=== PATIENT | female | born 1970 | race Caucasian/White ===

== ENCOUNTER → 2023-09-17 10:03 | Outpatient (REF) | payer BC, SELFPAY | LOC: WDC 10:03 | PROVIDERS: ATTENDING PHYSICIAN Student in an Organized Health Care Education/Training Program | DX: N64.4 Mastodynia (principal) | CPT/HCPCS: 76642; 77062; 77066 ==

== ENCOUNTER 2023-10-18 07:31 | Emergency (ER) | payer BC, SELFPAY ==
[2023-10-18 07:36] VITALS: BP 171/92
--- NOTE | 2023-10-18 08:00 | ED.MUSCINJ ---
HPI-Injury
General
Chief Complaint: Musculo-Skeletal Complaint
Source: patient
Exam Limitations: none
Time Seen by Provider: 10/18/23 07:54
Travel History
Have you had any contact with someone who has COVID-19?: No
Do you have any symptoms of coronavirus? Fever > 100 degrees, chills, cough, shortness of breath, sore throat, loss of taste or smell, muscle aches, or headache?: No
History of Present Illness-Injury
Initial Injury comments:
53-year-old female presents complaining of right rib pain after a fall earlier this morning. She tripped avoiding her cat and hit her right chest wall on a doorknob. Since then she has had pain and bruising. No urinary symptoms. No blood in the
urine. She notes it hurts to breathe and move. She is not anticoagulated. No other complaints at this time
Phy Exam
Physical Exam
Physical Exam:
General: Well-appearing female no acute respiratory distress
HEENT: Normocephalic atraumatic
Heart: Regular rate and rhythm no murmur
Lungs: Clear no wheeze or rales
Abdomen is soft no ecchymosis over the abdomen nontender.
Musculoskeletal exam: The right lateral chest wall and anterior chest wall is tender inferiorly. There is contusion over the inferior aspect of the right breast. There is no step-off or deformity
Injury Course
Orders/Labs/Results
Orders:
Orders
10/18/23 08:00
Ketorolac [Toradol] 30 mg IM NOW STA
CR Ribs-right 3 Vw W/pa Chest* Urgent
Comment:
Reason For Exam: fall, right rib pain
MDM/Problems Addressed
Differential Diagnosis Includes:
Right chest wall pain after trip and fall. Consider contusion versus rib fracture versus pneumothorax. Right rib series pending. Toradol ordered.
*Critical Care Note
Total Time (30-74mins, 75-104mins- exclusive of procedures): Not Applicable
Update Note
Update Note:
I personally visualized x-rays of the right ribs which demonstrate no fracture or pneumothorax. Back chest wall contusion. Recommended [id number] anti-inflammatories or Tylenol for pain and will prescribe muscle relaxer if needed for spasm.
Stable for
ED Attending Note
-
Portions of this chart may have been created with voice recognition software.� Occasional wrong word or��sound alike� substitutions may have occurred due to the inherent limitations of voice recognition software.
Discharge Plan
Departure
Patient Disposition: Home (Routine Discharge)
Date of Disposition: 10/18/23
Time of Disposition: 10:21
Patient with high blood pressure during this ER visit?: No
Discharge Problem:
Chest wall contusion
Instructions: Muscle and Bone Pain (DC)
Prescriptions:
New
methocarbamol 500 mg tablet
500 mg PO TID PRN (Reason: spasm) Qty: 10 0RF
Referrals:
UNKNOWN - PT DOES,NOT KNOW [Family Provider] -
Activity Restrictions/Additional Instructions:
Rest. Continue with Tylenol or ibuprofen for pain. Use muscle relaxers as needed for spasm. Avoid heavy lifting or twisting. Return if worse otherwise follow-up with family doctor
Interventions
Interventions:
*Risk Screen - Suicide Last Done: 10/18/23 07:37
*General Assessment Last Done: 10/18/23 07:37
*Neglect/Abuse Screening Last Done: 10/18/23 07:37
*ED COVID-19 Vaccine History Last Done: 10/18/23 07:42
ED-Musculoskeletal Assessment Last Done: 10/18/23 07:42
Discharge Date and Time
Print Language: K[place]IL[place]
[2023-10-18] MEDS: TORADOL 30 MG IM (08:09)
[2023-10-18 09:20] VITALS: BP 128/78
[2023-10-18 10:28] VITALS: BP 131/81
== END 2023-10-18 10:35 | disposition home or self-care (01) ==
LOC: EMR 07:31
PROVIDERS: EMERGENCY PHYSICIAN Emergency Medicine
DX: S20.211A Contusion of right front wall of thorax, initial encounter (principal); W18.09XA Striking against other object with subsequent fall, initial encounter
CPT/HCPCS: 99283; 71101

== ENCOUNTER → 2023-12-18 17:19 | Outpatient (REF) | payer BC, SELFPAY ==
[2023-12-18 18:14] LABS: % Basophils 1.1 % (0-2); % Immature Granulocytes 0.3 % (0-0.5); % Monocytes 11.6 % (1.7-9.3); Absolute Eosinophils 0.3 10^3/uL (0-0.7); Absolute Lymphocytes 1.6 10^3/uL (1.2-3.4); Absolute Monocytes 0.4 10^3/uL (0.1-0.6); Absolute Neutrophils 1.2 10^3/uL (1.4-6.5); Hematocrit 32.5 % (37.0-47.0); Hemoglobin 9.4 g/dL (12.0-16.0); Mean Corp Hgb Conc. 28.9 g/dL (33.0-37.0); Mean Corpuscular Hgb 22.1 pg (27.0-31.0); Mean Corpuscular Volume 76.3 fL (81.0-99.0); Mean Platelet Volume 10.4 fL (7.4-10.4); Nucleated Red Blood Cells % 0 %; Platelet Count 249 10^3/uL (130-400); Red Blood Cell Count 4.26 10^6/uL (4.20-5.40); Red Cell Dist. Width 19.5 % (11.5-14.5); White Blood Cell Count 3.5 10^3/uL (4.8-10.8)
[2023-12-18 18:17] LABS: ALT (SGPT) 49 U/L (0-35); AST (SGOT) 63 U/L (14-36); Albumin 4.8 g/dl (3.5-5.0); Alkaline Phosphatase 93 U/L (38-126); Blood Urea Nitrogen 19 mg/dl (7-17); Carbon Dioxide 22 mmol/L (22-30); Chloride 108 mmol/L (98-107); Glucose 67 mg/dl (70-99); HDL Cholesterol 72 mg/dl; LDL Cholesterol, Calculated 110 mg/dl; Potassium 4.2 mmol/L (3.5-5.1); Sodium 142 mmol/L (135-145); Total Bilirubin 0.3 mg/dl (0.2-1.3); Total Cholesterol 241 mg/dl (50-199); Total Protein 7.7 g/dl (6.3-8.2); Triglyceride 298 mg/dl (10-149); Very Low Density Lipoprotein 59 mg/dl (0-30); eGFR > 60.00
[2023-12-18 18:45] LABS: TSH 1.59 uIU/ml (0.47-4.68)
[2023-12-18 18:59] LABS: Anisocytosis 1+; Hypochromasia 1+; Microcytosis 1+; Normal RBC Morphology No
[2023-12-19 09:00] LABS: Glycohemoglobin (HgbA1c) 5.3 % (4.0-5.6)
== END ==
LOC: CLAB 17:19
PROVIDERS: ATTENDING PHYSICIAN Student in an Organized Health Care Education/Training Program
DX: Z13.9 Encounter for screening, unspecified (principal)
CPT/HCPCS: 36415; 80053; 80061; 83036; 84443; 85025

== ENCOUNTER 2024-01-21 07:49 | Emergency (ER) | payer BC, SELFPAY ==
[2024-01-21 07:53] VITALS: BP 177/90
[2024-01-21 08:14] VITALS: BMI 28.3
--- NOTE | 2024-01-21 08:25 | ED.SKININJ ---
HPI-Injury
General
Chief Complaint: Ear Problem
Source: patient
Exam Limitations: none
Time Seen by Provider: 01/21/24 08:14
History of Present Illness-Injury
Initial Injury comments:
53-year-old female presents complaining of left ear pain. She states she blew her nose and developed pain and noticed blood coming out of her ear. This started today. No headache no congestion no cough. She is not anticoagulated. No other
complaints at this time
Phy Exam
Physical Exam
Physical Exam:
General: Uncomfortable appearing female no acute respiratory distress
HEENT: Normocephalic atraumatic right TM within normal limits. Left TM with a streak of blood and evidence of a small pinhole rupture.
Heart: Regular rate and rhythm no murmurs
Lungs: Clear no wheeze or rales
Extremities: No cyanosis
Course
Orders/Labs/Results
Orders:
Orders
01/21/24 08:21
Acetaminophen [Tylenol] 1,000 mg PO NOW STA
Cefdinir [Omnicef] 300 mg PO NOW STA
01/21/24 08:29
Ibuprofen [Motrin] 600 mg PO NOW STA
Vital Signs
Initial and Last Documented VS:
Initial Vital Signs
Temp Pulse Resp BP Pulse Ox
99.2 F 109 18 177/90 97
01/21/24 07:53 01/21/24 07:53 01/21/24 07:53 01/21/24 07:53 01/21/24 07:53
Last Documented Vital Signs
Temp Pulse Resp BP Pulse Ox
99.2 F 109 18 177/90 97
01/21/24 07:53 01/21/24 07:53 01/21/24 07:53 01/21/24 07:53 01/21/24 07:53
MDM/Problems Addressed
Differential Diagnosis Includes:
Left ear pain. Consider otitis media TM rupture versus external infection
Examination most consistent with tympanic membrane rupture potentially from barotrauma from coughing. Patient is having difficulty hearing because of this. Will place on Omnicef. Patient did list penicillin as an allergy but believes she can
tolerate the cephalosporins. Tylenol administered for pain
*Critical Care Note
Total Time (30-74mins, 75-104mins- exclusive of procedures): Not Applicable
ED Attending Note
-
Portions of this chart may have been created with voice recognition software.� Occasional wrong word or��sound alike� substitutions may have occurred due to the inherent limitations of voice recognition software.
Discharge Plan
Departure
Patient Disposition: Home (Routine Discharge)
Date of Disposition: 01/21/24
Time of Disposition: 09:45
Patient with high blood pressure during this ER visit?: No
Discharge Problem:
Rupture of tympanic membrane
Instructions: Serous Otitis Media
Prescriptions:
New
cefdinir 300 mg capsule
300 mg PO BID Qty: 14 0RF
No Action
methocarbamol 500 mg tablet
500 mg PO TID PRN (Reason: spasm) Qty: 10 0RF
Referrals:
Linda Wan MD, Resident [Family Provider] -
Activity Restrictions/Additional Instructions:
You may continue with ibuprofen and Tylenol for pain. Take antibiotics as directed. Return if worse otherwise follow-up with family doctor
Interventions
Interventions:
*Risk Screen - Suicide Last Done: 01/21/24 08:14
*General Assessment Last Done: 01/21/24 08:14
*Neglect/Abuse Screening Last Done: 01/21/24 08:14
ED- Fall Risk Assessment Last Done: 01/21/24 08:54
*ED COVID-19 Vaccine History Last Done: 01/21/24 08:14
Discharge Date and Time
Print Language: [place] R[place]
[2024-01-21] MEDS: OMNICEF 300 MG PO (08:27)
[2024-01-21] MEDS: MOTRIN 600 MG PO (08:31)
== END 2024-01-21 10:02 | disposition home or self-care (01) ==
LOC: EMR 07:49
PROVIDERS: EMERGENCY PHYSICIAN Emergency Medicine; FAMILY PHYSICIAN Student in an Organized Health Care Education/Training Program
DX: H72.92 Unspecified perforation of tympanic membrane, left ear (principal)
CPT/HCPCS: 99283

== ENCOUNTER → 2024-04-30 15:58 | Outpatient (REF) | payer BC, SELFPAY ==
[2024-04-30 16:26] LABS: % Basophils 0.8 % (0-2); % Eosinophils 3.4 % (0-6); % Immature Granulocytes 0.5 % (0-0.5); % Monocytes 6.9 % (1.7-9.3); % Neutrophils 67.4 % (42.2-75.2); Absolute Basophils 0.1 10^3/uL (0-0.2); Absolute Eosinophils 0.2 10^3/uL (0-0.7); Absolute Lymphocytes 1.4 10^3/uL (1.2-3.4); Absolute Monocytes 0.5 10^3/uL (0.1-0.6); Absolute Neutrophils 4.4 10^3/uL (1.4-6.5); Hematocrit 35.9 % (37.0-47.0); Hemoglobin 10.6 g/dL (12.0-16.0); Mean Corp Hgb Conc. 29.5 g/dL (33.0-37.0); Mean Corpuscular Hgb 23.1 pg (27.0-31.0); Mean Corpuscular Volume 78.2 fL (81.0-99.0); Mean Platelet Volume 10.1 fL (7.4-10.4); Nucleated Red Blood Cells % 0 %; Platelet Count 259 10^3/uL (130-400); Red Blood Cell Count 4.59 10^6/uL (4.20-5.40); Red Cell Dist. Width 20.9 % (11.5-14.5); White Blood Cell Count 6.5 10^3/uL (4.8-10.8)
[2024-04-30 16:30] LABS: ALT (SGPT) 122 U/L (0-35); AST (SGOT) 110 U/L (14-36); Albumin 4.8 g/dl (3.5-5.0); Alkaline Phosphatase 114 U/L (38-126); Direct Bilirubin 0.1 mg/dl (0.0-0.4); Iron 48 ug/dl (37-170); Total Bilirubin 0.3 mg/dl (0.2-1.3); Total Protein 7.9 g/dl (6.3-8.2)
[2024-04-30 16:40] LABS: Percent Saturation 11 % (20-50); Total Iron Binding Capacity 434 ug/dl (265-497)
[2024-04-30 17:06] LABS: Ferritin 8.3 ng/ml (11.1-264.0)
[2024-04-30 17:37] LABS: Folate > 20.0 ng/ml (2.76-20); Vitamin B12 567 pg/ml (239-931)
== END ==
LOC: CLAB 15:58
PROVIDERS: ATTENDING PHYSICIAN Student in an Organized Health Care Education/Training Program
DX: D64.9 Anemia, unspecified (principal); D70.8 Other neutropenia; K21.9 Gastro-esophageal reflux disease without esophagitis; R74.8 Abnormal levels of other serum enzymes
CPT/HCPCS: 36415; 80076; 82607; 82728; 82746; 83540; 83550; 85025

== ENCOUNTER 2024-05-28 16:31 | Emergency (ER) | payer BC, SELFPAY ==
[2024-05-28 16:40] VITALS: BP 141/68
--- NOTE | 2024-05-28 16:42 | ED.GENMED ---
ED Provider Triage
<Gustavo Ortega PA-C - Last Filed: 05/28/24 16:44>
-
Patient seen by provider in Triage?: Seen in Triage
54-year-old female presents in referral from family doctor for evaluation of right lower quadrant abdominal pain. Pain has been 2 to 3 days. There is associated nausea and vomiting. Prior abdominal surgical history includes hysterectomy. No
urinary symptoms. ODT Zofran's have not been helping
Patient is nauseous at triage but has stable vital signs. Start workup with labs CBC CMP urinalysis as well as CT of the abdomen with IV contrast
Patient evaluated by healthcare provider at triage but warrants further assessment
History of Present Illness
<Gustavo Ortega PA-C - Last Filed: 05/28/24 16:44>
General
Chief Complaint: Abdominal Pain
Time Seen by Provider: 05/28/24 16:40
<LUISA Gilman - Last Filed: 05/28/24 22:34>
General
Source: patient
Exam Limitations: none
History of Present Illness
History of Present Illness:
This is a 54 year old female that comes in with c/o abd pain. States that she went to her PCP today as she has right sided abd pain. State that she has had nausea and vomiting for the past 3 days. States that her PCP told her to come to the ER.
States that she had a fever of 100, a headache and urinary burning. Denies any chills, chest pain, SOB, diarrhea, dizziness.
Past History
<LUISA Gilman - Last Filed: 05/28/24 22:34>
Past History
ED Past Surgical History: (X1), Gynecological (Hysterectomy, ) and Other (Breast reduction, rhinoplasty)
Social History
Tobacco: Former smoker
Alcohol: Occasional
Personal:
Living: with family
Review of Systems
<LUISA Gilman - Last Filed: 05/28/24 22:34>
Review of Systems
All Other Systems: ROS reviewed and negative except as documented in HPI and ROS
Constitutional: Reports fever; Denies chills
EENT: Reports no symptoms
Respiratory: Reports no symptoms; Denies cough or trouble breathing
Cardiac: Reports no symptoms; Denies chest pain
ABD/GI: Reports abdominal pain, nausea and vomiting; Denies diarrhea
: Reports dysuria; Denies frequency or urgency
Musculoskeletal: Reports no symptoms
Skin: Reports no symptoms
Neurological: Reports headache; Denies dizzy
Psychiatric: Reports no symptoms
Phy Exam
<LUISA Gilman - Last Filed: 05/28/24 22:34>
General Physical Exam
General Presentation: mild distress
General age: appears stated age
General Skin: warm and dry
General Habitus: normal
General Mental: alert
General Hydration: appears well hydrated
ENT Exam
ENT Exam: TM's normal, pharynx normal and neck supple
Eye Exam
Eye Exam: EOMI
Cardiovascular Exam
Cardiovascular Exam: regular rate/rhythm, no edema, no murmur and normal peripheral pulses
Pulmonary Exam
Pulmonary Exam: lungs clear, no respiratory distress, no rales, chest non tender, no crackles, no rhonchi, no wheezing and no cough
Gastrointestinal Exam
Gastrointestinal Exam: normal bowel sounds, soft, no organomegaly, no pulsatile mass, non distended and tender (Right sided abd tenderness with palpation, Discomfort with movement)
Musculoskeletal Exam
Musculoskeletal Exam: full ROM and no edema
Skin Exam
Skin Exam: normal color, warm/dry, no rash and no petechia
Course
<Gustavo Ortega PA-C - Last Filed: 05/28/24 16:44>
Orders/Labs/Results
Orders:
Orders
05/28/24 16:41
CT Abd/pelvis W Iv Cont Urgent
Comment:
Reason For Exam: rlq pain
Ondansetron Orally Disint [Zofran Odt (Orally Disintegrating)] 4 mg PO NOW STA
05/28/24 16:45
Ondansetron Orally Disint [Zofran Odt (Orally Disintegrating)] 4 mg .ROUTE .STK-MED ONE
05/28/24 16:54
Complete Blood Count/With Diff Urgent
Comprehensive Metabolic Panel Urgent
Lipase Urgent
05/28/24 19:12
Urinalysis Reflex To Culture Urgent
Date Specimen was Collected: 05/28/24
Time Specimen was Collected: 18:37
Urine Microscopic Reflex Cult Urgent
05/28/24 19:17
0.9% Sodium Chloride 1000 ml [Nss] 1,000 ml IV BOLUS
Ketorolac [Toradol] 30 mg IV NOW STA
Ondansetron Injectable [Zofran] 4 mg IV NOW STA
05/28/24 19:19
US Abdomen Complete/Upper Urgent
Reason For Exam: Upper abdp ain
05/28/24 20:42
HYDROmorphone [Dilaudid] 1 mg IV NOW STA
05/28/24 20:47
Metoclopramide [Reglan] 10 mg .ROUTE .STK-MED ONE
05/28/24 20:51
Metoclopramide [Reglan] 10 mg IV NOW STA
Abnormal Lab Results
05/28/24 05/28/24
16:54 19:12
Hgb 10.0 L g/dL
(12.0-16.0)
Hct 33.1 L %
(37.0-47.0)
MCV 76.1 L fL
(81.0-99.0)
MCH 23.0 L pg
(27.0-31.0)
MCHC 30.2 L g/dL
(33.0-37.0)
RDW 18.9 H %
(11.5-14.5)
Absolute Lymphs (auto) 1.1 L 10^3/uL
(1.2-3.4)
Monocytes % 10.1 H %
(1.7-9.3)
AST 45 H U/L
(14-36)
ALT 48 H U/L
(0-35)
Ur Occult Blood Reflex 1+ A
(Negative)
05/28/24 16:54
05/28/24 16:54
Vital Signs
Initial and Last Documented VS:
Initial Vital Signs
Temp Pulse Resp BP Pulse Ox
98.3 F 102 20 141/68 100
05/28/24 16:40 05/28/24 16:40 05/28/24 16:40 05/28/24 16:40 05/28/24 16:40
Last Documented Vital Signs
Temp Pulse Resp BP Pulse Ox
98.3 F 102 20 141/68 100
05/28/24 16:40 05/28/24 16:40 05/28/24 16:40 05/28/24 16:40 05/28/24 16:40
<LUISA Gilman - Last Filed: 05/28/24 22:34>
Orders/Labs/Results
Orders:
Orders
05/28/24 16:41
CT Abd/pelvis W Iv Cont Urgent
Comment:
Reason For Exam: rlq pain
Ondansetron Orally Disint [Zofran Odt (Orally Disintegrating)] 4 mg PO NOW STA
05/28/24 16:45
Ondansetron Orally Disint [Zofran Odt (Orally Disintegrating)] 4 mg .ROUTE .STK-MED ONE
05/28/24 16:54
Complete Blood Count/With Diff Urgent
Comprehensive Metabolic Panel Urgent
Lipase Urgent
05/28/24 19:12
Urinalysis Reflex To Culture Urgent
Date Specimen was Collected: 05/28/24
Time Specimen was Collected: 18:37
Urine Microscopic Reflex Cult Urgent
05/28/24 19:17
0.9% Sodium Chloride 1000 ml [Nss] 1,000 ml IV BOLUS
Ketorolac [Toradol] 30 mg IV NOW STA
Ondansetron Injectable [Zofran] 4 mg IV NOW STA
05/28/24 19:19
US Abdomen Complete/Upper Urgent
Reason For Exam: Upper abdp ain
05/28/24 20:42
HYDROmorphone [Dilaudid] 1 mg IV NOW STA
05/28/24 20:47
Metoclopramide [Reglan] 10 mg .ROUTE .STK-MED ONE
05/28/24 20:51
Metoclopramide [Reglan] 10 mg IV NOW STA
Abnormal Lab Results
05/28/24 05/28/24
16:54 19:12
Hgb 10.0 L g/dL
(12.0-16.0)
Hct 33.1 L %
(37.0-47.0)
MCV 76.1 L fL
(81.0-99.0)
MCH 23.0 L pg
(27.0-31.0)
MCHC 30.2 L g/dL
(33.0-37.0)
RDW 18.9 H %
(11.5-14.5)
Absolute Lymphs (auto) 1.1 L 10^3/uL
(1.2-3.4)
Monocytes % 10.1 H %
(1.7-9.3)
AST 45 H U/L
(14-36)
ALT 48 H U/L
(0-35)
Ur Occult Blood Reflex 1+ A
(Negative)
05/28/24 16:54
05/28/24 16:54
H/H slightly low. Anemic, AST/ALT slightly elevated. Lipase normal at 57, Urine negative for infection.
Vital Signs
Initial and Last Documented VS:
Initial Vital Signs
Temp Pulse Resp BP Pulse Ox
98.3 F 102 20 141/68 100
05/28/24 16:40 05/28/24 16:40 05/28/24 16:40 05/28/24 16:40 05/28/24 16:40
Last Documented Vital Signs
Temp Pulse Resp BP Pulse Ox
98.3 F 102 20 141/68 100
05/28/24 16:40 05/28/24 16:40 05/28/24 16:40 05/28/24 16:40 05/28/24 16:40
<LUISA Gilman - Last Filed: 05/28/24 22:34>
MDM/Problems Addressed
Differential Diagnosis Includes:
appendicitis. Ovarian cyst. Gallbladder disease
MDM/Problems Addressed:
This is a 54 year old female that comes in with c/o right sided abd pain. States that she went to see the PCP today as she has had abd pain for the past 3 days with nausea and vomiting. Patient sent in for further evaluation.
Will check labs, CT scan and get limited Ultrasound. Will give IV fluids and pain medication with antiemetic.
back over to see patient. patient was sleeping. Explained that her blood work is normal and her urine is negative for infection. CT scan and Ultrasound are negative for any acute process. Will give patient a prescription for Reglan and her have
follow up with the family doctor. Patient to return with increased or changing pain, fever or any other concerns .
Chronic conditions affecting care:
NA
Acute Exacerbation and/or Progression of Chronic Illness:
NA
<LUISA Gilman - Last Filed: 05/28/24 22:34>
*Radiology
Radiology exam reviewed: radiology read reviewed (CT-There is no evidence of acute pathology. Evaluation for bowel pathology is limited by the lack of enteric contrast. If there is clinical suspicion for bowel pathology, this study could be
repeated with enteric contrast and 4 hour delay. ) and all reviewed NAD by ED Provider (Abd Ultrasound-Normal. )
*Pulse Oximetry
Patient hypoxic: no
*EKG
Interpreted by ED Provider?: NA
Rate: EKG- N/A
*Pen Rider Interpretation
Rate: Pen Rider- N/A
*Critical Care Note
Total Time (30-74mins, 75-104mins- exclusive of procedures): Not Applicable
ED Attending Note
<Gustavo Ortega PA-C - Last Filed: 05/28/24 16:44>
-
Portions of this chart may have been created with voice recognition software.� Occasional wrong word or��sound alike� substitutions may have occurred due to the inherent limitations of voice recognition software.
Discharge Plan
Departure
Patient Disposition: Home (Routine Discharge)
Date of Disposition: 05/28/24
Time of Disposition: 22:29
Patient with high blood pressure during this ER visit?: Yes
Condition: Good
Covid-19: Not Applicable
Discharge Problem:
Abdominal pain
Instructions: Abdominal Pain, BLOOD PRESSURE
Prescriptions:
New
metoclopramide HCl [Reglan] 10 mg tablet
10 mg PO Q6H PRN (Reason: nausea and vomiting) Qty: 16 0RF
No Action
methocarbamol 500 mg tablet
500 mg PO TID PRN (Reason: spasm) Qty: 10 0RF
cefdinir 300 mg capsule
300 mg PO BID Qty: 14 0RF
Referrals:
Linda Wan MD, Resident [Family Provider] - Follow up in 2-3 days
Activity Restrictions/Additional Instructions:
As discussed, your blood work shows that you are a little anemic. Your liver enzymes are slightly elevated. Your urine is negative for infection. Your CT and Ultrasound as negative for any acute process. Please increase your water intake to 8-8oz
glasses daily. You have had a prescription for Reglan sent to your pharmacy to help with any nausea/vomiting. Follow up with the family doctor for recheck. IF YOU HAVE INCREASED OR CHANGING PAIN, FEVER, OR YOU HAVE ANY OTHER CONCERNS PLEASE RETURN
TO THE EMERGENCY ROOM
Interventions
Interventions:
*Risk Screen - Suicide Last Done: 05/28/24 16:40
*General Assessment Last Done: 05/28/24 16:40
*Neglect/Abuse Screening Last Done: 05/28/24 16:40
NG-Rqxuqb-Goizkhxcpf Assessment Last Done: 05/28/24 19:30
Discharge Date and Time
Print Language: FAROESE
[2024-05-28] MEDS: ZOFRAN ODT (ORALLY DISINTEGRATING) 4 MG PO (16:45)
[2024-05-28 17:02] LABS: % Basophils 0.6 % (0-2); % Immature Granulocytes 0.4 % (0-0.5); % Monocytes 10.1 % (1.7-9.3); % Neutrophils 65.9 % (42.2-75.2); Absolute Eosinophils 0.1 10^3/uL (0-0.7); Absolute Lymphocytes 1.1 10^3/uL (1.2-3.4); Absolute Monocytes 0.5 10^3/uL (0.1-0.6); Absolute Neutrophils 3.4 10^3/uL (1.4-6.5); Hematocrit 33.1 % (37.0-47.0); Mean Corp Hgb Conc. 30.2 g/dL (33.0-37.0); Mean Corpuscular Volume 76.1 fL (81.0-99.0); Mean Platelet Volume 9.4 fL (7.4-10.4); Nucleated Red Blood Cells % 0 %; Platelet Count 359 10^3/uL (130-400); Red Blood Cell Count 4.35 10^6/uL (4.20-5.40); Red Cell Dist. Width 18.9 % (11.5-14.5); White Blood Cell Count 5.1 10^3/uL (4.8-10.8)
[2024-05-28 17:16] LABS: ALT (SGPT) 48 U/L (0-35); AST (SGOT) 45 U/L (14-36); Albumin 4.8 g/dl (3.5-5.0); Alkaline Phosphatase 98 U/L (38-126); Blood Urea Nitrogen 15 mg/dl (7-17); Calcium 9.5 mg/dl (8.4-10.2); Carbon Dioxide 24 mmol/L (22-30); Chloride 102 mmol/L (98-107); Glucose 96 mg/dl (70-99); Lipase 57 U/L (23-300); Potassium 4.3 mmol/L (3.5-5.1); Sodium 137 mmol/L (135-145); Total Bilirubin 0.4 mg/dl (0.2-1.3); Total Protein 7.8 g/dl (6.3-8.2); eGFR > 60.00
[2024-05-28 19:28] LABS: Urine Albumin Negative (Neg - Trace); Urine Bilirubin Negative (Negative); Urine Character Clear (Clear); Urine Color Straw; Urine Glucose Negative (Negative); Urine Ketone Negative (Negative); Urine Leukocyte Negative (Negative); Urine Nitrite Negative (Negative); Urine Occult Blood 1+ (Negative); Urine Urobilinogen Negative (Neg - 1+); Urine pH 6.5 (5.0-9.0)
[2024-05-28] MEDS: NSS 1000 IV (19:37)
[2024-05-28] MEDS: ZOFRAN 4 MG IV (19:38)
[2024-05-28] MEDS: TORADOL 30 MG IV (19:38)
[2024-05-28 19:45] LABS: Urine Red Blood Cell 0-2 /HPF (0-2); Urine Squamous Cell 0-2 /LPF (Few); Urine White Cell 0-2 /HPF (0-5)
[2024-05-28] MEDS: DILAUDID 1 MG IV (20:49)
[2024-05-28] MEDS: REGLAN 10 MG IV (20:51)
[2024-05-28 22:31] VITALS: BP 120/75
== END 2024-05-28 22:37 | disposition home or self-care (01) ==
LOC: EMR 16:31
PROVIDERS: Physician Assistant; EMERGENCY PHYSICIAN Emergency Medicine; FAMILY PHYSICIAN Student in an Organized Health Care Education/Training Program
DX: R10.9 Unspecified abdominal pain (principal); R03.0 Elevated blood-pressure reading, without diagnosis of hypertension; Z87.891 Personal history of nicotine dependence
CPT/HCPCS: 99285; 96374; 96375 ×3; 96361; 74177; 76700; 80053; 81003; 81015; 83690; 85025; Q9967

== ENCOUNTER 2024-06-11 18:30 | Emergency (ER) | payer BC, SELFPAY ==
[2024-06-11 18:34] VITALS: BP 142/97
[2024-06-11 18:51] LABS: % Basophils 0.8 % (0-2); % Eosinophils 4.5 % (0-6); % Immature Granulocytes 0.2 % (0-0.5); % Lymphocytes 30.3 % (20.5-51.1); % Monocytes 13.4 % (1.7-9.3); % Neutrophils 50.8 % (42.2-75.2); Absolute Eosinophils 0.2 10^3/uL (0-0.7); Absolute Lymphocytes 1.5 10^3/uL (1.2-3.4); Absolute Monocytes 0.7 10^3/uL (0.1-0.6); Absolute Neutrophils 2.5 10^3/uL (1.4-6.5); Hematocrit 30.1 % (37.0-47.0); Hemoglobin 9.2 g/dL (12.0-16.0); Mean Corp Hgb Conc. 30.6 g/dL (33.0-37.0); Mean Corpuscular Volume 75.3 fL (81.0-99.0); Mean Platelet Volume 9.3 fL (7.4-10.4); Nucleated Red Blood Cells % 0 %; Platelet Count 292 10^3/uL (130-400); Red Cell Dist. Width 17.7 % (11.5-14.5); White Blood Cell Count 4.9 10^3/uL (4.8-10.8)
[2024-06-11 19:03] LABS: Lactic Acid 2.6 mmol/L (0.7-2.0)
[2024-06-11 19:10] LABS: ALT (SGPT) 51 U/L (0-35); AST (SGOT) 52 U/L (14-36); Albumin 4.5 g/dl (3.5-5.0); Alkaline Phosphatase 107 U/L (38-126); Blood Urea Nitrogen 20 mg/dl (7-17); Calcium 8.3 mg/dl (8.4-10.2); Carbon Dioxide 20 mmol/L (22-30); Chloride 101 mmol/L (98-107); Glucose 91 mg/dl (70-99); Lipase 68 U/L (23-300); Potassium 3.6 mmol/L (3.5-5.1); Sodium 135 mmol/L (135-145); Total Bilirubin 0.3 mg/dl (0.2-1.3); Total Protein 7.3 g/dl (6.3-8.2); eGFR > 60.00
[2024-06-11 19:41] LABS: TSH Reflex To Free T4 1.84 uIU/ml (0.47-4.68)
--- NOTE | 2024-06-11 22:32 | ED.GENMED ---
History of Present Illness
<Arti Vicente MD, Resident - Last Filed: 06/13/24 07:19>
General
Chief Complaint: Abdominal Pain
Source: patient
Time Seen by Provider: 06/11/24 21:07
Nursing documentation reviewed up to this point in time: agreed with
History of Present Illness
History of Present Illness:
54yo F with PMH diverticulitis, GI bleed, hiatal hernia, GERD who presents from home to ED for worsening abdominal pain/nausea. She has had nausea/pain since the beginning of May-- was evaluated by PCP and ED 05/28 but unclear etiology of pain.
Over the past 2 weeks, it got slightly better but is now worsening today. Her abdominal pain is worst in RUQ and radiates to back. Describes pain as 8/10, stabbing, exacerbated by activity/stairs/jumping, partially relieved by rest/tylenol/excedrin,
not associated with food. She again saw PCP today, who was concerned for peritonitic signs and sent to ED. She also reports nausea, reflux, and 2 episodes of vomiting today. Denies fevers/chills, diarrhea, constipation, black/bloody stools.
Past History
<Arti Vicente MD, Resident - Last Filed: 06/13/24 07:19>
Past History
ED Past Medical History: GERD, Psychiatric (depression) and Other (hiatal hernia, h/o diverticulitis, h/o GI bleed)
ED Past Surgical History: (X1), Gynecological (Hysterectomy), Orthopedic (neck surgery) and Other (Breast reduction, rhinoplasty)
Patient has exhibited threatening behavior?: No
Social History
Tobacco: Former smoker
Alcohol: None
Drug: None
Personal: Other (in process of divorce)
Living: with family
Employment: Not employed
Review of Systems
<Arti Vicente MD, Resident - Last Filed: 06/13/24 07:19>
Review of Systems
Allergies reviewed?: Yes
Constitutional: Reports no symptoms; Denies fever, fatigue or chills
EENT: Reports no symptoms
Respiratory: Reports no symptoms; Denies cough, hemoptysis or trouble breathing
Cardiac: Reports no symptoms; Denies diaphoresis, palpitations or syncope
ABD/GI: Reports other (see HPI)
: Reports no symptoms; Denies dysuria or difficulty voiding
Musculoskeletal: Reports no symptoms
Skin: Reports no symptoms
Neurological: Reports other (mild lightheadnedness); Denies dizzy, headache, weakness or numbness
Endocrine: Reports no symptoms
Hematologic/Lymphatic: Reports no symptoms
Psychiatric: Reports no symptoms
Phy Exam
<Arti Vicente MD, Resident - Last Filed: 06/13/24 07:19>
General Physical Exam
General Presentation: other (appears uncomfortable)
General age: appears stated age
General Skin: warm and dry
General Habitus: normal and obese
General Mental: alert
General Hydration: appears well hydrated
Cardiovascular Exam
Cardiovascular Exam: regular rate/rhythm, no edema and no murmur
Heart Sounds: normal
Pulmonary Exam
Pulmonary Exam: lungs clear, no respiratory distress, no crackles, no rhonchi, no wheezing, no cough and other (nonlabored breathing)
Oxygen Status: room air
Gastrointestinal Exam
Gastrointestinal Exam: soft, non distended, cva tenderness (right) and other (tender to palpation RUQ/R periumbilical region with rebound, voluntary guarding; wilson sign negative; no rigidity, negative bed shaking test)
Neurological Exam
Neurological Exam: alert, oriented x3 and speech normal
Musculoskeletal Exam
Musculoskeletal Exam: no edema
Skin Exam
Skin Exam: normal color and warm/dry
Psychiatric Exam
Psychiatric Exam: normal mood/affect and anxious
Course
<Arti Vicente MD, Resident - Last Filed: 06/13/24 07:19>
Orders/Labs/Results
Orders:
Orders
06/11/24 18:43
Complete Blood Count/With Diff Urgent
Comprehensive Metabolic Panel Urgent
Lactic Acid Urgent
Lipase Urgent
TSH Reflex To Free T4 Urgent
06/11/24 22:19
Iohexol [Omnipaque] See Protocol PO NOW STA
06/11/24 22:33
Ondansetron Injectable [Zofran] 4 mg IV NOW STA
06/11/24 22:53
Famotidine [Pepcid] 20 mg PO NOW STA
Morphine Sulfate 4 mg IV NOW STA
06/11/24 22:56
0.9% Sodium Chloride 1000 ml [Nss] 1,000 ml IV BOLUS
06/12/24 00:21
Morphine Sulfate 4 mg IV NOW STA
Ondansetron Injectable [Zofran] 4 mg IV NOW STA
06/12/24 01:00
CT Abd/pel W Iv And Oral Contr Urgent
Reason For Exam: persistent lower abd pain, elevated lactic acid
06/12/24 01:29
Lactic Acid Urgent
06/12/24 02:47
Metoclopramide [Reglan] 10 mg IV NOW STA
Abnormal Lab Results
06/11/24
18:43
RBC 4.00 L 10^6/uL
(4.20-5.40)
Hgb 9.2 L g/dL
(12.0-16.0)
Hct 30.1 L %
(37.0-47.0)
MCV 75.3 L fL
(81.0-99.0)
MCH 23.0 L pg
(27.0-31.0)
MCHC 30.6 L g/dL
(33.0-37.0)
RDW 17.7 H %
(11.5-14.5)
Absolute Monos (auto) 0.7 H 10^3/uL
(0.1-0.6)
Monocytes % 13.4 H %
(1.7-9.3)
Carbon Dioxide 20 L mmol/L
(22-30)
BUN 20 H mg/dl
(7-17)
Lactic Acid 2.6 H mmol/L
(0.7-2.0)
Calcium 8.3 L mg/dl
(8.4-10.2)
AST 52 H U/L
(14-36)
ALT 51 H U/L
(0-35)
06/11/24 18:43
06/11/24 18:43
Vital Signs
Initial and Last Documented VS:
Initial Vital Signs
Temp Pulse Resp BP Pulse Ox
99.1 F 116 20 142/97 98
06/11/24 18:34 06/11/24 18:34 06/11/24 18:34 06/11/24 18:34 06/11/24 18:34
Last Documented Vital Signs
Temp Pulse Resp BP Pulse Ox
98.9 F 94 20 159/102 99
06/12/24 01:26 06/12/24 01:26 06/11/24 18:34 06/12/24 01:26 06/12/24 01:26
<Constantino Quintana, - Last Filed: 06/12/24 00:26>
Orders/Labs/Results
Orders:
Orders
06/11/24 18:43
Complete Blood Count/With Diff Urgent
Comprehensive Metabolic Panel Urgent
Lactic Acid Urgent
Lipase Urgent
TSH Reflex To Free T4 Urgent
06/11/24 22:19
Iohexol [Omnipaque] See Protocol PO NOW STA
06/11/24 22:33
Ondansetron Injectable [Zofran] 4 mg IV NOW STA
06/11/24 22:53
Famotidine [Pepcid] 20 mg PO NOW STA
Morphine Sulfate 4 mg IV NOW STA
06/11/24 22:56
0.9% Sodium Chloride 1000 ml [Nss] 1,000 ml IV BOLUS
06/12/24 00:21
Morphine Sulfate 4 mg IV NOW STA
Ondansetron Injectable [Zofran] 4 mg IV NOW STA
06/12/24 01:00
CT Abd/pel W Iv And Oral Contr Urgent
Reason For Exam: persistent lower abd pain, elevated lactic acid
06/12/24 01:29
Lactic Acid Urgent
06/12/24 02:47
Metoclopramide [Reglan] 10 mg IV NOW STA
Abnormal Lab Results
06/11/24
18:43
RBC 4.00 L 10^6/uL
(4.20-5.40)
Hgb 9.2 L g/dL
(12.0-16.0)
Hct 30.1 L %
(37.0-47.0)
MCV 75.3 L fL
(81.0-99.0)
MCH 23.0 L pg
(27.0-31.0)
MCHC 30.6 L g/dL
(33.0-37.0)
RDW 17.7 H %
(11.5-14.5)
Absolute Monos (auto) 0.7 H 10^3/uL
(0.1-0.6)
Monocytes % 13.4 H %
(1.7-9.3)
Carbon Dioxide 20 L mmol/L
(22-30)
BUN 20 H mg/dl
(7-17)
Lactic Acid 2.6 H mmol/L
(0.7-2.0)
Calcium 8.3 L mg/dl
(8.4-10.2)
AST 52 H U/L
(14-36)
ALT 51 H U/L
(0-35)
06/11/24 18:43
06/11/24 18:43
Vital Signs
Initial and Last Documented VS:
Initial Vital Signs
Temp Pulse Resp BP Pulse Ox
99.1 F 116 20 142/97 98
06/11/24 18:34 06/11/24 18:34 06/11/24 18:34 06/11/24 18:34 06/11/24 18:34
Last Documented Vital Signs
Temp Pulse Resp BP Pulse Ox
98.9 F 94 20 159/102 99
06/12/24 01:26 06/12/24 01:26 06/11/24 18:34 06/12/24 01:26 06/12/24 01:26
<Arti Vicente MD, Resident - Last Filed: 06/13/24 07:19>
MDM/Problems Addressed
Differential Diagnosis Includes:
broad differential of abdominal pain and nausea includes choledocholithiasis/cholecystitis, pancreatitis, bowel obstruction, diverticulitis, pyelonephritis, gastritis, peptic ulcer disease, constipation
MDM/Problems Addressed:
54yo F with PMH diverticulitis, GI bleed, hiatal hernia, GERD who presents from home to ED for acute on chronic abdominal pain/nausea
Afebrile, no leukocytosis-- lower concern for infection.
Tbili wnl, LFTs mildly elevated similar to 05/28/24-- less likely acute gallbladder pathology
UA unremarkable-- less likely to be pyelonephritis
Lower clinical suspicion for bowel obstruction or constipation as patient is having regular BMs, passing flatus
Elevated lactic acid noted, will repeat after IVF
Await CT imaging results
Symptom management with zofran, morphine
<Constantino Quintana DO - Last Filed: 06/12/24 00:26>
*Pulse Oximetry
Patient hypoxic: no
*Critical Care Note
Total Time (30-74mins, 75-104mins- exclusive of procedures): Not Applicable
Data Reviewed
Review of Other/Old Records Reveals: Radiology Studies (Recent CT scan report reviewed)
Source: patient
<Arti Vicente MD, Resident - Last Filed: 06/13/24 07:19>
Update Note
Update Note:
CT scan reviewed: 1. No CT abnormalities identified to explain the patient's symptoms. 2. No evidence of intestinal obstruction, bowel inflammatory process, nephrolithiasis, hydronephrosis, cholecystitis, or abscess formation.
Patient was discharged home in stable condition
Case discussed with PCP
ED Attending Note
<Arti Vicente MD, Resident - Last Filed: 06/13/24 07:19>
-
Portions of this chart may have been created with voice recognition software.� Occasional wrong word or��sound alike� substitutions may have occurred due to the inherent limitations of voice recognition software.
<Constantino Quintana DO - Last Filed: 06/12/24 00:26>
ED Attending Note
Patient seen and examined by attending physician: Yes
I performed a history and physical exam of patient and discussed management with resident, I reviewed resident's note and agree with documented findings and plan of care.: Yes
ED Attending Note:
54-year-old female with persistent abdominal pain. Patient states she felt she was getting little better but saw her doctor today who examined her abdomen was concerned about her exam. Patient presents with persistent pain. No fevers. No
vomiting. Has been mildly nauseous. Exam: Mild diffuse tenderness, no distention. No true guarding. Assessment and plan: White count normal but will repeat with IV and oral contrast given mild bump in lactic acid and low-grade temperature and
persistent pain.
Discharge Plan
Departure
Patient Disposition: Home (Routine Discharge)
Date of Disposition: 06/12/24
Time of Disposition: 02:26
Patient with high blood pressure during this ER visit?: Yes
Discharge Problem:
Abdominal pain
Instructions: Abdominal Pain
Prescriptions:
No Action
methocarbamol 500 mg tablet
500 mg PO TID PRN (Reason: spasm) Qty: 10 0RF
cefdinir 300 mg capsule
300 mg PO BID Qty: 14 0RF
metoclopramide HCl [Reglan] 10 mg tablet
10 mg PO Q6H PRN (Reason: nausea and vomiting) Qty: 16 0RF
Referrals:
Noemí Everett MD [Active] -
Linda Wan MD, Resident [Family Provider] -
Activity Restrictions/Additional Instructions:
Take reglan as needed for nausea/vomiting
Follow up with gastroenterology
Return to the emergency department for fever or new/worsening symptoms
Interventions
Interventions:
*Risk Screen - Suicide Last Done: 06/12/24 03:15
*General Assessment Last Done: 06/11/24 18:34
*Neglect/Abuse Screening Last Done: 06/11/24 23:12
ED- Fall Risk Assessment Last Done: 06/12/24 03:15
*ED COVID-19 Vaccine History Last Done: 06/11/24 23:12
*Nursing Disposition Last Done: 06/12/24 03:15
VO-[id number] Assessment Last Done: 06/11/24 23:13
Discharge Date and Time
Discharge Date/Time: 06/12/24 03:19
Print Language: LAO
[2024-06-11] MEDS: ZOFRAN 4 MG IV (22:55)
[2024-06-11] MEDS: OMNIPAQUE 50 ML PO (22:55)
[2024-06-11] MEDS: MORPHINE SULFATE 4 MG IV (23:04)
[2024-06-11] MEDS: PEPCID 20 MG PO (23:04)
[2024-06-11] MEDS: NSS 1000 IV (23:06)
[2024-06-11 23:10] VITALS: BP 142/87
[2024-06-12] MEDS: MORPHINE SULFATE 4 MG IV (00:28)
[2024-06-12] MEDS: ZOFRAN 4 MG IV (00:28)
[2024-06-12 01:26] VITALS: BP 159/102
[2024-06-12 02:36] LABS: Lactic Acid 0.8 mmol/L (0.7-2.0)
[2024-06-12] MEDS: REGLAN 10 MG IV (02:55)
== END 2024-06-12 03:19 | disposition home or self-care (01) ==
LOC: EMR 18:30
PROVIDERS: Student in an Organized Health Care Education/Training Program; EMERGENCY PHYSICIAN Emergency Medicine; FAMILY PHYSICIAN Student in an Organized Health Care Education/Training Program
DX: R11.0 Nausea (principal); K21.9 Gastro-esophageal reflux disease without esophagitis; R74.02 Elevation of levels of lactic acid dehydrogenase [LDH]; Z87.891 Personal history of nicotine dependence; Z90.710 Acquired absence of both cervix and uterus
CPT/HCPCS: 96374; 96375; 96376; 96361; 99284; 74177; 80053; 83605; 83690; 84443; 85025; Q9967

== ENCOUNTER → 2024-09-11 10:40 | Outpatient (REF) | payer BC, SELFPAY | LOC: HWRAD 10:40 | PROVIDERS: ATTENDING PHYSICIAN Student in an Organized Health Care Education/Training Program; FAMILY PHYSICIAN Student in an Organized Health Care Education/Training Program | DX: M25.561 Pain in right knee (principal) | CPT/HCPCS: 73564 ==

== ENCOUNTER → 2024-10-17 10:56 | Outpatient (REF) | payer BC, SELFPAY | LOC: PAVMRI 10:56 | PROVIDERS: ATTENDING PHYSICIAN Student in an Organized Health Care Education/Training Program | DX: M54.12 Radiculopathy, cervical region (principal) | CPT/HCPCS: 72156 ==